=== PATIENT | female | born 1990 | race African-American/Black ===

== ENCOUNTER 2021-06-29 19:09 | Emergency (ER) | payer MEDICAID ==
[~2021-06-29] VITALS: Ht 160 cm; Wt 64.0 kg
[2021-06-30] MEDS ORDERED: ACETAMINOPHEN 325MG TABLET PO STA (00:03)
[2021-06-30] MEDS ORDERED: DIPHENHYDRAMINE 50MG CAPSULE PO ONE (00:15)
[2021-06-30] MEDS ORDERED: SODIUM CHLORIDE 0.9% 1,000 ML IV ONE (00:15)
[2021-06-30] MEDS ORDERED: PROCHLORPERAZINE 10MG/2ML VIAL IV ONE (00:15)
[2021-06-30 00:45] LABS: BASOPHILS % 0.5 % (0.0-2.0); EOSINOPHILS % 3.6 % (0.0-5.0); HEMATOCRIT. 36.7 % (36.0-48.0); HEMOGLOBIN. 11.9 g/dL (12.0-16.0); LYMPHOCYTES % 59.9 % (20.0-50.0); MEAN CORPUSCULAR HEMOGLOBIN 28.1 pg (28.0-32.0); MEAN CORPUSCULAR VOLUME 86.6 fL (81.0-99.0); MEAN PLATELET VOLUME 7.7 fl (7.4-10.4); PLATELET 282 x1000/uL (130-400); RED BLOOD CELL COUNT 4.24 mill/uL (4.2-5.4); RED CELL DISTRIBUTION WIDTH 14.4 % (11.6-14.6)
[2021-06-30 00:47] LABS: CHLORIDE 106 mEq/L (98-107)
[2021-06-30 02:50] VITALS: BP 123/81
== END 2021-06-30 03:43 | disposition home or self-care (01) ==
LOC: ER 19:09
DX: R51.9 Headache, unspecified (principal); R42 Dizziness and giddiness
CPT/HCPCS: 36415; 80053; 81025; 85025; 93005; 96361; 96374; 99284; J0780; J7030; Q0163